=== PATIENT | male | born 1950 | race Caucasian/White ===

== ENCOUNTER 2017-09-08 22:05 | Observation (INO) | payer BC ==
[~2017-09-08] VITALS: Ht 175.3 cm; Wt 95.3 kg
[~2017-09-08 22:05] MED LIST: CLOP75 PO; CYCL10 PO; DIAZ1KIT4; HYDR1TAB94 PO; PRAV20 PO; Pravachol80 MG PO; STRESS FORMULA; Toprol Xl200 MG PO
[2017-09-08] MEDS ORDERED: ROSU5 PO (22:18)
[2017-09-08] MEDS ORDERED: OXYCODONE (22:19)
[2017-09-08] MEDS ORDERED: AMLO10 PO (22:19)
[2017-09-08] MEDS ORDERED: LOSA50 PO (22:19)
[2017-09-08] MEDS ORDERED: CLON.1 PO (22:20)
[2017-09-08] MEDS ORDERED: Cialis5 MG PO (22:20)
[2017-09-08] MEDS ORDERED: TESTOSTERONE (22:21)
[2017-09-08 22:36] LABS: BASOPHILS ABSOLUTE AUTO 0.04 K/mm3 (0.00-0.23); BASOPHILS PERCENT AUTO 1 % (0-2); EOSINOPHILS ABSOLUTE AUTO 0.18 K/mm3 (0.00-0.68); EOSINOPHILS PERCENT AUTO 3 % (0-6); Hematocrit 52.5 % (37.0-53.0); Hemoglobin 18.1 g/dL (13.5-17.5); IMMATURE GRAN ABSOLUTE AUTO 0.02 K/mm3 (0.00-0.10); IMMATURE GRAN PERCENT AUTO 0 % (0-1); LYMPHOCYTES ABSOLUTE AUTO 2.73 K/mm3 (0.84-5.20); LYMPHOCYTES PERCENT AUTO 40 % (21-46); MONOCYTES ABSOLUTE AUTO 0.79 K/mm3 (0.16-1.47); MONOCYTES PERCENT AUTO 12 % (4-13); Mean Corpuscular HGB 32.8 pg (26.0-34.0); Mean Corpuscular HGB Conc 34.5 g/dL (31.5-36.5); Mean Corpuscular Volume 95 fL (80-100); Mean Platelet Volume 10.6 fL (9.1-12.4); NEUTROPHILS ABSOLUTE AUTO 3.11 K/mm3 (1.96-9.15); NEUTROPHILS PERCENT AUTO 45 % (41-73); Platelet Count 162 K/mm3 (150-400); RDW Coefficient Variation 11.9 % (11.7-14.2); Red Blood Cell Count 5.52 M/mm3 (4.30-5.90); White Blood Cell Count 6.87 K/mm3 (4.00-11.30)
[2017-09-08 22:58] LABS: Alanine Aminotransfer (ALT/SGP 50 U/L (12-78); Albumin/Globulin Ratio 1.1 (0.8-1.8); Alk Phos 85 U/L (50-136); Anion Gap 7 mmol/L (6-16); Aspartate Aminotrans (AST/SGOT 28 U/L (12-37); Bilirubin, Total 0.4 mg/dL (0.1-1.0); Blood Urea Nitrogen 22 mg/dL (8-24); Bun/Creatinine Ratio 16.9 (12.0-20.0); CO2, Blood 31 mmol/L (21-32); Calcium, Blood 9.4 mg/dL (8.5-10.1); Chloride, Blood 102 mmol/L (98-108); Globulin, Blood 3.8 g/dL (2.2-4.0); Glomerular Filtration Rate 59 (60-); Glucose, Blood 98 mg/dL (70-99); Potassium, Blood 3.8 mmol/L (3.5-5.5); Sodium, Blood 140 mmol/L (136-145); Total Protein, Blood 7.8 g/dL (6.4-8.2); Troponin I <0.015 ng/mL (0.000-0.040)
[2017-09-08] MEDS ORDERED: OXYC10TA19 PO (23:11)
[2017-09-08] MEDS ORDERED: TESTOSTERO200 MG/1 M IM (23:14)
[2017-09-08 23:30] LABS: CPK Creatine Kinase 56 U/L (39-308); Creatine Kinase MB Index 1.8 (0.0-4.0); Phosphorus, Blood 2.1 mg/dL (2.5-4.9)
[2017-09-09] MEDS ORDERED: Norco 5-325 Ta1 EACH PO (02:12)
[2017-09-09] MEDS ORDERED: TOCO1000 PO (02:15)
[2017-09-09 08:17] LABS: BASOPHILS ABSOLUTE AUTO 0.03 K/mm3 (0.00-0.23); BASOPHILS PERCENT AUTO 1 % (0-2); EOSINOPHILS ABSOLUTE AUTO 0.16 K/mm3 (0.00-0.68); EOSINOPHILS PERCENT AUTO 3 % (0-6); Hematocrit 49.7 % (37.0-53.0); Hemoglobin 17.8 g/dL (13.5-17.5); IMMATURE GRAN ABSOLUTE AUTO 0.01 K/mm3 (0.00-0.10); IMMATURE GRAN PERCENT AUTO 0 % (0-1); LYMPHOCYTES ABSOLUTE AUTO 2.18 K/mm3 (0.84-5.20); LYMPHOCYTES PERCENT AUTO 37 % (21-46); MONOCYTES PERCENT AUTO 10 % (4-13); Mean Corpuscular HGB 33.5 pg (26.0-34.0); Mean Corpuscular HGB Conc 35.8 g/dL (31.5-36.5); Mean Corpuscular Volume 94 fL (80-100); Mean Platelet Volume 10.9 fL (9.1-12.4); NEUTROPHILS PERCENT AUTO 50 % (41-73); Platelet Count 153 K/mm3 (150-400); RDW Coefficient Variation 11.9 % (11.7-14.2); RDW Standard Deviation 41.2 fL (35.1-46.3); Red Blood Cell Count 5.31 M/mm3 (4.30-5.90); White Blood Cell Count 5.98 K/mm3 (4.00-11.30)
[2017-09-09 08:35] LABS: Alanine Aminotransfer (ALT/SGP 40 U/L (12-78); Albumin, Blood 3.5 g/dL (3.4-5.0); Albumin/Globulin Ratio 1.1 (0.8-1.8); Alk Phos 68 U/L (50-136); Anion Gap 8 mmol/L (6-16); Aspartate Aminotrans (AST/SGOT 18 U/L (12-37); Bilirubin, Total 0.5 mg/dL (0.1-1.0); Blood Urea Nitrogen 19 mg/dL (8-24); Bun/Creatinine Ratio 16.5 (12.0-20.0); CO2, Blood 26 mmol/L (21-32); Calcium, Blood 8.9 mg/dL (8.5-10.1); Chloride, Blood 106 mmol/L (98-108); Creatinine, Blood 1.15 mg/dL (0.60-1.20); Globulin, Blood 3.3 g/dL (2.2-4.0); Glomerular Filtration Rate >60 (60-); Glucose, Blood 99 mg/dL (70-99); Potassium, Blood 4.3 mmol/L (3.5-5.5); Sodium, Blood 140 mmol/L (136-145); Total Protein, Blood 6.8 g/dL (6.4-8.2)
[2017-09-09 08:38] LABS: CPK Creatine Kinase 31 U/L (39-308); Troponin I <0.015 ng/mL (0.000-0.040)
[2017-09-09] MEDS ORDERED: LOSA50 PO (16:16)
[2017-09-09] MEDS ORDERED: ASPI81CH PO (16:17)
[2017-09-09] MEDS ORDERED: ROSU5 PO (16:18)
== END 2017-09-09 17:10 | disposition home or self-care (01) ==
LOC: ER 22:05 → MEDS 22:06 → ENPENDDIS 09-09 15:56 → MEDS 09-09 17:10
PROVIDERS: Emergency Medicine; Internal Medicine
DX: R42 Dizziness and giddiness (principal); I12.9 Hypertensive chronic kidney disease with stage 1 through stage 4 chronic kidney disease, or unspecified chronic kidney disease; N18.1 Chronic kidney disease, stage 1; E83.39 Other disorders of phosphorus metabolism; E78.00 Pure hypercholesterolemia, unspecified; Z86.73 Personal history of transient ischemic attack (TIA), and cerebral infarction without residual deficits; Z98.890 Other specified postprocedural states; Z79.899 Other long term (current) drug therapy; Z79.01 Long term (current) use of anticoagulants; Z79.891 Long term (current) use of opiate analgesic; Z88.8 Allergy status to other drugs, medicaments and biological substances
CPT/HCPCS: 36415; 70450; 71045; 80053; 82550; 82553; 83735; 83880; 84100; 84484; 85025; 93005; 93010; 93306; 93880; 96365; 96366; 96372; 96375; 99285; G0378; J1650; J3010; J7040

== ENCOUNTER → 2017-09-23 | Outpatient (CLI) | payer BC ==
[~2017-09-23] MED LIST changes: +AMLO10 PO; +ASPI81CH PO; +CLON.1 PO; +Cialis5 MG PO; +LOSA50 PO; +Norco 5-325 Ta1 EACH PO; +OXYC10TA19 PO; +OXYCODONE; +ROSU5 PO; +TESTOSTERO200 MG/1 M IM; +TESTOSTERONE; +TOCO1000 PO
== END | disposition home or self-care (01) ==
LOC: OLS 07:46
DX: I10 Essential (primary) hypertension (principal)
CPT/HCPCS: 82043